=== PATIENT | female | born 1945 | race Asian ===

== ENCOUNTER → 2025-07-04 | Outpatient (CLI) | payer BC, MEDICARE, SELFPAY ==
--- NOTE | 2025-07-04 16:21 | XR_ITS ---
EXAMINATION: Cervical spine, 5 views Technique: Cervical spine AP, AP odontoid, lateral, bilateral obliques, 5 views Exam date and time: July 04, 2025, 1624 hrs., Comparison September 17, 2024 Indications: Neck pain radiating down both arms one week. Findings: Reversal normal cervical lordosis. No cervical fracture. Intact odontoid. Advanced degenerative disc disease C4-C5, C5-C6, C6-C7, C7-T1 with bilateral [id number] neural foraminal stenosis, most severe at the C4-C5 and C5-C6 levels Cervical levoscoliosis 12 degrees Soft tissue neck surgical clips Impression: Advanced degenerative disc disease as above, diffuse, with significant bilateral neural foraminal stenosis
== END | disposition home or self-care (01) ==
PROVIDERS: PCP Chiropractor; Referring Provider Chiropractor; Visit Provider Chiropractor
DX: M50.321 Other cervical disc degeneration at C4-C5 level (principal); M48.02 Spinal stenosis, cervical region; M50.33 Other cervical disc degeneration, cervicothoracic region; M48.03 Spinal stenosis, cervicothoracic region
CPT/HCPCS: 72050